=== PATIENT | female | born 1950 | race Caucasian/White ===

== ENCOUNTER 2024-09-09 18:31 | Emergency (ER) | payer MEDICARE, OTHER, SELFPAY ==
[2024-09-09 18:49] VITALS: BP 175/94
--- NOTE | 2024-09-09 19:37 | ED.GENMED ---
History of Present Illness
General
Chief Complaint: Rabies
Source: patient
Exam Limitations: none
Time Seen by Provider: 09/09/24 19:23
Nursing documentation reviewed up to this point in time: agreed with
History of Present Illness
History of Present Illness:
74-year-old female with history as noted presents to the ER for rabies prophylaxis. Patient was walking in her neighborhood and saw a sickly baby gomez and picked it up. She brought to her garage and called police/animal control who took the gomez
away. She says that they are planning to put the box down. She says that she does not believe she was bitten or scratched but she was recommended to go to the ER for rabies prophylaxis.
Review of Systems
Review of Systems
All Other Systems: ROS reviewed and negative except as documented in HPI and ROS
Skin: Reports other (Denies any bite or scratch small)
Phy Exam
Physical Exam
Physical Exam:
General: Well appearing and non-toxic
HEENT: protecting airway
Neck: appears supple
CV: No evidence of cyanosis
Resp: No accessory muscle use
Abd: Non-distended
Extremities: No deformities
Neuro: Alert
Psych: Normal affect
Skin: Intact without signs of acute trauma
Scores
Heart Failure Risk
Heart Failure Risk Score: Not Applicable
Heart Score for Chest Pain Patients
STEMI patient?: Not applicable
Withdrawal Assessment of Alcohol
Withdrawal Assessment Completed?: Not applicable
Course
Orders/Labs/Results
Orders:
Orders
09/09/24 19:34
Rabies Vaccine (Pcec)/Pf [Rabavert Rabies Vacc W-Diluent] 2.5 unit IM .ONCE ONE
Vital Signs
Initial and Last Documented VS:
Initial Vital Signs
Temp Pulse Resp BP Pulse Ox
36.8 C 70 18 175/94 98
09/09/24 18:49 09/09/24 18:49 09/09/24 18:49 09/09/24 18:49 09/09/24 18:49
Last Documented Vital Signs
Temp Pulse Resp BP Pulse Ox
36.8 C 70 18 175/94 98
09/09/24 18:49 09/09/24 18:49 09/09/24 18:49 09/09/24 18:49 09/09/24 18:49
MDM/Problems Addressed
Differential Diagnosis Includes:
Rabies exposure
MDM/Problems Addressed:
74-year-old female was referred to the ER for rabies prophylaxis after possible exposure�she says she handled a sickly baby gomez tonight. She denies any bites or scratches but was sent for prophylaxis and an abundance of caution. Will provide
postexposure prophylaxis. She says they will be tested for rabies and will follow-up with her. Otherwise we will plan to complete full series.
*Pulse Oximetry
Patient hypoxic: no
*Critical Care Note
Total Time (30-74mins, 75-104mins- exclusive of procedures): Not Applicable
Data Reviewed
Source: patient
ED Attending Note
-
Portions of this chart may have been created with voice recognition software.� Occasional wrong word or��sound alike� substitutions may have occurred due to the inherent limitations of voice recognition software.
Discharge Plan
Departure
Patient with high blood pressure during this ER visit?: No
Discharge Problem:
Rabies exposure, Hypertension
Instructions: BLOOD PRESSURE, Rabies
Prescriptions:
New
RabAvert (PF) 2.5 unit Suspension For Reconstitution
1 ml IM . DIRECTED Qty: 3 0RF
Rx Instructions:
See Rabies Vaccine Post Exposure Prophylaxis Instruction Sheet for Dosing Instructions
No Action
aspirin 325 mg Tablet
325 mg PO ONCE
Vitamin C 100 mg Tablet
100 mg PO DAILY
zinc 50 mg Tablet
50 mg PO DAILY
cholecalciferol (vitamin D3) [Vitamin D3] 25 mcg (1,000 unit) Tablet
25 mcg PO DAILY
Stand Alone Forms: Rabies Vaccine Post Exp Dosing
Activity Restrictions/Additional Instructions:
Thank you for visiting the Emergency Department at [facility].
1. Please schedule a follow up appointment as directed. Call first thing tomorrow morning to make an appointment.
2. If indicated, please take your medications as instructed and indicated on discharge paperwork.
3. If any of your symptoms do not improve, or persist, or become more severe within 6-12 hours, please return to the emergency department for further care.
4. Please return to the emergency department if you develop a headache, neck pain/stiffness, fever greater than 100.4F, chest pain, shortness of breath, persistent nausea, vomiting, slurred speech, difficulty walking, numbness/tingling, weakness,
signs of infection or any other symptoms that are worrisome to you.
Please call [phone] if you have any questions.
Interventions
Interventions:
*Risk Screen - Suicide Last Done: 09/09/24 18:49
*Neglect/Abuse Screening Last Done: 09/09/24 18:49
*ED COVID-19 Vaccine History Last Done: 09/09/24 18:49
Discharge Date and Time
Print Language: TOGOLESE
[2024-09-09] MEDS: RABAVERT RABIES VACC W-DILUENT 2.5 UNIT IM (21:05)
[2024-09-09] MEDS: HyperRAB 1756 UNIT IM (21:12)
== END 2024-09-09 21:26 | disposition home or self-care (01) ==
LOC: EMR 18:31
PROVIDERS: EMERGENCY PHYSICIAN Emergency Medicine; FAMILY PHYSICIAN Family Medicine
DX: Z20.3 Contact with and (suspected) exposure to rabies (principal); I10 Essential (primary) hypertension; Z23 Encounter for immunization
CPT/HCPCS: 90471; 96372; 99284; 90375; 90675